=== PATIENT | male | born 1960 | race Caucasian/White ===

== ENCOUNTER → 2016-09-23 | Outpatient (CLI) | payer OTHER ==
[~2016-09-23] MED LIST: E-Z-PAQUE 96% w/w SUSP 176GM BTL As Ordered ONE
--- NOTE | 2016-09-23 17:37 | REP ---
SMALL BOWEL FOLLOW-THROUGH: The procedure was performed under the direct supervision of Dr. Bunn. The images were reviewed with Dr. Bunn. The director of food and nutrition services film shows no organomegaly or pathological masses. The intestinal gas pattern is nonspecific. There are surgical clips noted in the right upper quadrant. Liquid barium was administered and the barium column was followed through the small bowel to the level of the terminal ileum. Small bowel transit time is approximately 2 hours and 10 minutes. During fluoroscopy gentle palpation shows all loops are freely movable and pliable. There are no fixed or angulated loops. The small bowel mucosal pattern is normal in course and caliber. There is no transition to suggest a partial small bowel obstruction. Spot filming of terminal ileum shows it to be unremarkable. IMPRESSION: Small bowel follow-through examination within normal limits. 41 seconds of fluoroscopy time was utilized for this procedure. Reviewed by JAKOB Pugh 09/24/2016 04:36 PEdited and Signed by Julian Bunn MD 09/24/2016 04:51 P
== END | disposition home or self-care (01) ==
LOC: M RAD 08:44
PROVIDERS: ATTEND Internal Medicine Gastroenterology
DX: R93.3 Abnormal findings on diagnostic imaging of other parts of digestive tract (principal)

== ENCOUNTER → 2016-09-30 | Outpatient (REF) | payer OTHER ==
[~2016-09-30] MED LIST changes: +ALBU83IN INH; -E-Z-PAQUE 96% w/w SUSP 176GM BTL As Ordered ONE; +FLUT1SPR2; +LEXA1TAB PO; +METF500T PO; +OMEP40CA2 PO; +TYLE325T5 PO; +ZYRT10TA2 PO
[2016-09-30 11:47] LABS: ALBUMIN 3.6 GM/DL (3.2-5.2); ALBUMIN/GLOBULIN RATIO 1.06 (1.00-1.93); ALKALINE PHOSPHATASE 81 U/L (45-117); ALT/SGPT 20 U/L (12-78); ANION GAP 7 MEQ/L (8-16); AST/SGOT 11 U/L (15-37); BILIRUBIN,TOTAL 0.3 MG/DL (0.2-1.0); BLOOD UREA NITROGEN 13 MG/DL (7-18); CALCIUM LEVEL 8.6 MG/DL (8.5-10.1); CARBON DIOXIDE LEVEL 27 MEQ/L (21-32); CHLORIDE LEVEL 109 MEQ/L (98-107); CHOLESTEROL LEVEL 171 MG/DL (<200); GLOMERULAR FILTRATION RATE > 60.0 (>56); GLUCOSE, FASTING 94 MG/DL (70-105); POTASSIUM SERUM 4.4 MEQ/L (3.5-5.1); SODIUM LEVEL 143 MEQ/L (136-145); TRIGLYCERIDES LEVEL 120 MG/DL (<150)
== END | disposition home or self-care (01) ==
LOC: M SFHCLERA 08:50
PROVIDERS: ATTEND Physician Assistant
DX: E11.65 Type 2 diabetes mellitus with hyperglycemia (principal); E78.2 Mixed hyperlipidemia

== ENCOUNTER → 2016-10-06 | Outpatient (CLI) | payer OTHER ==
[~2016-10-06] VITALS: Ht 165.1 cm; Wt 109.3 kg
[~2016-10-06] MED LIST changes: +NS 1,000 ML IV SCH; +PROPOFOL 200 MG/20 ML VIAL As Ordered ONE
--- NOTE | 2016-10-06 09:22 | ROOR ---
Patient Name: Carlos Negron Procedure Date: 10/06/2016 9:05 AM Date of : 1960 Age: 55 Room: [facility] Gender: Male Note Status: Finalized Procedure: Colonoscopy Indications: Screening for colorectal malignant neoplasm Providers: Sreedhar CAO MD Referring MD: PRECIOUS Melendez Requesting Provider: Medicines: Monitored Anesthesia Care Complications: No immediate complications. Procedure: Pre-Anesthesia Assessment: - The heart rate, respiratory rate, oxygen saturations, blood pressure, adequacy of pulmonary ventilation, and response to care were monitored throughout the procedure. The Colonoscope was introduced through the anus and advanced to 3 cm into the ileum. The colonoscopy was performed without difficulty. The patient tolerated the procedure well. The quality of the bowel preparation was good. Findings: The perianal exam findings include non-thrombosed external hemorrhoids. (Exam: Complete, Prep: Good or Excellent.) A 3 mm polyp was found in the sigmoid colon. The polyp was sessile. The polyp was removed with a cold snare. Resection and retrieval were complete. Small Internal Hemorrhoids. The exam was otherwise normal throughout the examined colon. The terminal ileum appeared normal. Impression: - Non-thrombosed external hemorrhoids found on perianal exam. - (Exam: Complete, Prep: Good or Excellent.) - One 3 mm polyp in the sigmoid colon, removed with a cold snare. Resected and retrieved. - Small Internal Hemorrhoids. - The colon exam was otherwise normal. - The examined portion of the ileum was normal. Recommendation: - Await pathology results. - If the pathology report reveals adenomatous tissue, then repeat the colonoscopy for surveillance in 5 years. - Telephone endoscopist for pathology results in 2 weeks. Sreedhar Cao MD Sreedhar CAO MD 10/06/2016 9:22:34 AM This report has been signed electronically. Number of Addenda: 0 Note Initiated On: 10/06/2016 9:05 AM Estimated Blood Loss: Estimated blood loss: none.
[2016-10-06 09:46] VITALS: BP 145/76
== END ==
LOC: M OPP 08:07
PROVIDERS: ATTEND Internal Medicine Gastroenterology
DX: Z12.11 Encounter for screening for malignant neoplasm of colon (principal); D12.5 Benign neoplasm of sigmoid colon; K64.8 Other hemorrhoids; K64.4 Residual hemorrhoidal skin tags; K21.9 Gastro-esophageal reflux disease without esophagitis; F32.9 Major depressive disorder, single episode, unspecified; F41.9 Anxiety disorder, unspecified; Z72.0 Tobacco use; Z79.899 Other long term (current) drug therapy

== ENCOUNTER → 2017-07-27 | Outpatient (CLI) | payer OTHER ==
[~2017-07-27] MED LIST changes: -METF500T PO; +METF500T13 PO; -NS 1,000 ML IV SCH; -PROPOFOL 200 MG/20 ML VIAL As Ordered ONE
--- NOTE | 2017-07-27 10:40 | REP ---
Clinical: Chest pain . Comparison: 07/23/2010 . Technique: PA and lateral. Findings: The mediastinum and cardiac silhouette are normal. The lung ram are clear and without acute consolidation, effusion, or pneumothorax. The skeletal structures are intact and normal. Impression: 1. No acute cardiopulmonary process. Signed by Campos Huertas MD 07/27/2017 10:31 A
== END ==
LOC: M LRY 10:03
PROVIDERS: ATTEND Physician Assistant
DX: R07.9 Chest pain, unspecified (principal)

== ENCOUNTER → 2017-11-26 | Outpatient (REF) | payer OTHER ==
[2017-11-26 12:08] LABS: HEMOGLOBIN 16.5 g/dl (13.5-17.5)
[2017-11-26 12:29] LABS: ALBUMIN 3.7 GM/DL (3.2-5.2); ALBUMIN/GLOBULIN RATIO 1.12 (1.00-1.93); ALKALINE PHOSPHATASE 82 U/L (45-117); ALT/SGPT 23 U/L (12-78); ANION GAP 3 MEQ/L (8-16); AST/SGOT 19 U/L (7-37); BILIRUBIN,TOTAL 0.4 MG/DL (0.2-1.0); BLOOD UREA NITROGEN 9 MG/DL (7-18); CALCIUM LEVEL 9.2 MG/DL (8.5-10.1); CARBON DIOXIDE LEVEL 31 MEQ/L (21-32); CHLORIDE LEVEL 108 MEQ/L (98-107); CHOLESTEROL LEVEL 162 MG/DL (<200); CHOLESTEROL RISK RATIO 5.225 (<5); CREATININE FOR GFR 0.94 MG/DL (0.70-1.30); GLOMERULAR FILTRATION RATE > 60.0 (>56); GLUCOSE, FASTING 127 MG/DL (70-100); HDL CHOLESTEROL 31 MG/DL (>40); LDL CHOLESTEROL 108.2 MG/DL (<100); NON-HDL-C 131 MG/DL; POTASSIUM SERUM 4.9 MEQ/L (3.5-5.1); SODIUM LEVEL 142 MEQ/L (136-145); TRIGLYCERIDES LEVEL 114 MG/DL (<150)
== END ==
LOC: M SFHCLERA 09:12
DX: E11.65 Type 2 diabetes mellitus with hyperglycemia (principal); E78.2 Mixed hyperlipidemia

== ENCOUNTER → 2018-06-17 | Outpatient (REF) | payer OTHER ==
[2018-06-17 13:52] LABS: BASO # 0.1 10^3/uL (0.0-0.2); BASO % 0.7 % (0.0-1.0); EOS # 0.5 10^3/uL (0.0-0.50); EOS % 5.2 % (0.0-3.0); HEMATOCRIT 51.1 % (42.0-52.0); HEMOGLOBIN 17.3 g/dl (13.5-17.5); IMMATURE GRANULOCYTE % 0.9 % (0-3.0); LYMPH # 2.1 10^3/uL (1.5-4.5); LYMPH % 23.7 % (24.0-44.0); MEAN CORPUSCULAR HEMOGLOBIN 30.7 pg (27.0-33.0); MEAN CORPUSCULAR HGB CONC 33.9 g/dl (32.0-36.5); MEAN CORPUSCULAR VOLUME 90.6 fl (80.0-96.0); MONO # 0.7 10^3/uL (0.0-0.8); MONO % 8.2 % (0.0-5.0); NEUTROPHILS # 5.4 10^3/uL (1.8-7.7); NEUTROPHILS % 61.3 % (36.0-66.0); PLATELET COUNT, AUTOMATED 214 10^3/uL (150-450); RED BLOOD COUNT 5.64 10^6/uL (4.30-6.10); RED CELL DISTRIBUTION WIDTH 14.3 % (11.5-14.5); WHITE BLOOD COUNT 8.9 10^3/uL (4.0-10.0)
[2018-06-17 14:01] LABS: ALBUMIN/GLOBULIN RATIO 1.29 (1.00-1.93); ALKALINE PHOSPHATASE 82 U/L (45-117); ALT/SGPT 31 U/L (12-78); ANION GAP 7 MEQ/L (8-16); AST/SGOT 24 U/L (7-37); BILIRUBIN,TOTAL 0.4 MG/DL (0.2-1.0); BLOOD UREA NITROGEN 9 MG/DL (7-18); CALCIUM LEVEL 9.5 MG/DL (8.5-10.1); CARBON DIOXIDE LEVEL 28 MEQ/L (21-32); CHLORIDE LEVEL 106 MEQ/L (98-107); CHOLESTEROL LEVEL 145 MG/DL (<200); CHOLESTEROL RISK RATIO 3.625 (<5); CREATININE FOR GFR 0.92 MG/DL (0.70-1.30); GLOMERULAR FILTRATION RATE > 60.0 (>56); GLUCOSE, FASTING 112 MG/DL (70-100); HDL CHOLESTEROL 40 MG/DL (>40); LDL CHOLESTEROL 77 MG/DL (<100); NON-HDL-C 105 MG/DL; POTASSIUM SERUM 4.5 MEQ/L (3.5-5.1); SODIUM LEVEL 141 MEQ/L (136-145); TOTAL PROTEIN 7.1 GM/DL (6.4-8.2); TRIGLYCERIDES LEVEL 140 MG/DL (<150)
[2018-06-17 14:32] LABS: ESTIMATED AVERAGE GLUCOSE 143 MG/DL (60-110); HEMOGLOBIN A1c 6.6 %
[2018-06-17 14:36] LABS: CREATININE, URINE 19.9 MG/DL; MALB URINE SIEMENS < 5.0 MG/L
[2018-06-17 14:37] LABS: MAU/CREAT RATIO 25.1 MCG/MG (0.0-30.0)
== END ==
LOC: M SFHCPLAZ 11:25
DX: E78.2 Mixed hyperlipidemia (principal); E11.65 Type 2 diabetes mellitus with hyperglycemia; I10 Essential (primary) hypertension
CPT/HCPCS: 80053

== ENCOUNTER → 2018-06-24 | Outpatient (CLI) | payer OTHER | LOC: M WUC 17:13 | DX: J01.10 Acute frontal sinusitis, unspecified (principal); J20.9 Acute bronchitis, unspecified; Z72.0 Tobacco use | CPT/HCPCS: 71046 ==

== ENCOUNTER → 2019-11-06 | Outpatient (CLI) | payer BC, OTHER ==
[~2019-11-06] MED LIST changes: -OMEP40CA2 PO; +OMEP40CA97 PO; +ZYRT10CA5 PO; -ZYRT10TA2 PO
--- NOTE | 2019-11-06 19:51 | REP ---
PA and lateral chest: Comparison is 06/24/2018. There is chronic hyperinflation, unchanged. There are no infiltrates or pleural effusions. There are no masses or nodules. The cardiac size is normal. The eliezer, mediastinum, skeletal structures are unremarkable for patient age, and unchanged. There is multilevel moderate degenerative disc disease throughout the thoracic spine, unchanged. Impression: Chronic hyperinflation. Chronic low thoracic spine degenerative disc disease. No interval change. Electronically Signed by Oseas Gonzalez MD 11/06/2019 07:43 P
== END ==
LOC: M LRY 15:56
PROVIDERS: ATTEND Nurse Practitioner Family
DX: R09.89 Other specified symptoms and signs involving the circulatory and respiratory systems (principal)

== ENCOUNTER → 2020-06-25 | Outpatient (CLI) | payer OTHER ==
[~2020-06-25] MED LIST changes: +FLON1SPR NARES
[2020-06-25 10:52] LABS: HEMATOCRIT 53.1 % (42.0-52.0); MEAN CORPUSCULAR HEMOGLOBIN 29.4 pg (27.0-33.0); MEAN CORPUSCULAR VOLUME 91.9 fl (80.0-96.0); PLATELET COUNT, AUTOMATED 175 10^3/uL (150-450); RED BLOOD COUNT 5.78 10^6/uL (4.30-6.10); WHITE BLOOD COUNT 7.8 10^3/uL (4.0-10.0)
[2020-06-25 11:02] LABS: INR 0.93; PROTHROMBIN TIME 12.7 SECONDS (12.5-14.3)
[2020-06-25 11:12] LABS: ALBUMIN 3.9 GM/DL (3.2-5.2); ALT/SGPT 23 U/L (12-78); BILIRUBIN,TOTAL 0.3 MG/DL (0.2-1.0); BLOOD UREA NITROGEN 9 MG/DL (7-18); CALCIUM LEVEL 9.3 MG/DL (8.5-10.1); CARBON DIOXIDE LEVEL 28 MEQ/L (21-32); CHLORIDE LEVEL 104 MEQ/L (98-107); CREATININE FOR GFR 0.93 MG/DL (0.70-1.30); ERYTHROCYTE SEDIMENTATION RATE 1 mm/hr (0-20); GLOMERULAR FILTRATION RATE > 60.0 (>56); GLUCOSE, FASTING 138 MG/DL (70-100); POTASSIUM SERUM 4.5 MEQ/L (3.5-5.1); SODIUM LEVEL 135 MEQ/L (136-145); TOTAL PROTEIN 7.1 GM/DL (6.4-8.2)
--- NOTE | 2020-06-26 03:28 | REP ---
INDICATION: RIGHT KNEE ARTHRITIS; PREOP COMPARISON: 11/06/2019 TECHNIQUE: PA and lateral. FINDINGS: The mediastinum and cardiac silhouette are normal. The lung ram are clear and without acute consolidation, effusion, or pneumothorax. The skeletal structures are intact and normal. IMPRESSION: No acute cardiopulmonary process. <Electronically signed by Campos Huertas > 06/26/20 032
--- NOTE | 2020-06-27 22:45 | ECGEPIP ---
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 Electronically Signed on 06-27-2020 22:45:39 EDT by Sreedhar Valadez
== END ==
LOC: M LAB 09:47
PROVIDERS: ATTEND Orthopaedic Surgery
DX: Z01.818 Encounter for other preprocedural examination (principal); M17.11 Unilateral primary osteoarthritis, right knee

== ENCOUNTER → 2020-07-02 | Outpatient (REF) | payer OTHER ==
[2020-07-02 16:20] LABS: ALT/SGPT 23 U/L (12-78); BILIRUBIN,TOTAL 0.4 MG/DL (0.2-1.0); BLOOD UREA NITROGEN 11 MG/DL (7-18); C REACTIVE PROTEIN QUANTITATIV 0.93 MG/DL (0.00-0.30); CALCIUM LEVEL 9.9 MG/DL (8.5-10.1); CARBON DIOXIDE LEVEL 30 MEQ/L (21-32); CHLORIDE LEVEL 105 MEQ/L (98-107); CHOLESTEROL LEVEL 180 MG/DL (<200); CREATININE FOR GFR 0.98 MG/DL (0.70-1.30); FREE T4 1.02 NG/DL (0.76-1.46); GLOMERULAR FILTRATION RATE > 60.0 (>56); GLUCOSE, FASTING 103 MG/DL (70-100); HDL CHOLESTEROL 36 MG/DL (>40); LDL CHOLESTEROL 116 MG/DL (<100); NON-HDL-C 144 MG/DL; NT-PRO BNP 52 PG/ML (<125); POTASSIUM SERUM 4.9 MEQ/L (3.5-5.1); SODIUM LEVEL 138 MEQ/L (136-145); TOTAL PROTEIN 7.3 GM/DL (6.4-8.2); TRIGLYCERIDES LEVEL 139 MG/DL (<150); TROPONIN I < 0.02 NG/ML (< 0.10)
[2020-07-02 18:01] LABS: HEMOGLOBIN A1c 6.8 %
== END ==
LOC: M SFHCPLAZ 13:02
PROVIDERS: ATTEND Family Medicine
DX: Z01.818 Encounter for other preprocedural examination (principal); E11.65 Type 2 diabetes mellitus with hyperglycemia

== ENCOUNTER → 2020-07-03 | Outpatient (CLI) | payer OTHER ==
[~2020-07-03] MED LIST changes: +ACET-683 PO
== END ==
LOC: M LABSMTC 13:27
PROVIDERS: ATTEND Anesthesiology
DX: Z01.818 Encounter for other preprocedural examination (principal)
CPT/HCPCS: C9803; U0003

== ENCOUNTER 2020-07-08 10:38 | Inpatient (IN) | payer OTHER ==
--- NOTE | 2020-07-05 09:48 | HPE ---
DATE OF ADMISSION: 07/08/2020 ATTENDING PHYSICIAN: Dr. Rafael Cao ADMITTING DIAGNOSIS: Work related injury to his right knee. HISTORY: This is a 59-year-old male patient with progressively worsening right knee pain and stiffness related to a work related injury. He ultimately developed osteoarthritis in that knee and failed to improve with conservative management and elected for a knee replacement on the right side. He has been consented by Dr. Gee for a right total knee arthroplasty. He has pain with weightbearing activities and activities of daily living. X-rays of his knee are notable for end-stage degenerative changes of the right knee, medical optimization pending and now present for review today. ALLERGIES: No known drug allergies. CURRENT MEDICATIONS: 1. Prilosec 20 mg one tablet once per day. 2. He does use [id number] Motrin. We did discuss he needs to stop that five days prior to surgery. PAST MEDICAL HISTORY: Include gastric reflux disease, symptomatic osteoarthritis of the right knee, elevated cholesterol. PAST SURGICAL HISTORY: Carpal tunnel release, gallbladder removed, tonsils removed, prior right knee scope, bilateral PE tubes. FAMILY HISTORY: Arthritis, heart disease, hypertension. SOCIAL HISTORY: Does continue to smoke. He does use alcohol. REVIEW OF SYSTEMS: Denies fever or chills. Denies chest pain, shortness of breath or cough. Denies difficulty breathing. Denies abdominal pain. There is persistent pain in his right knee and pain with weightbearing activities. Denies exposure to COVID-19. Denies nausea or vomiting. PHYSICAL EXAMINATION TODAY: Reveals a well-nourished, well developed male patient. He ambulates with a limping gait, favors his right side. Exam of the right knee reveals tenderness mainly over the medial joint line. Patellar grind is irritable. The calf is soft, nontender to palpation. He has irritability to extremes of range of motion. Well perfused right lower extremity. His neck is supple without adenopathy or JVD. Lungs are clear to auscultation, without rales or wheeze. Heart is regular rate and rhythm. Abdomen; bowel sounds are present. Height 65 inches, weight 242 pounds. Temperature 96.6, blood pressure 142/90, pulse 66, respirations 18. LABORATORY DATA: Glucose 138, BUN 9, creatinine 0.93. Sodium 135, potassium 4.5. WBC 7.8, RBC 5.7, hemoglobin 17.0, hematocrit 53.1, sed rate 1. PT 12.7, INR 0.93. IMAGING STUDIES: Chest x-ray no acute cardiopulmonary disease process noted. EKG sinus rhythm. IMPRESSION: Symptomatic osteoarthritis of the right knee, and consented for a right total knee arthroplasty by Dr. Gee secondary to a work related injury. PLAN: He was consulted on his risks, benefits, alternatives and indications of the surgery, went over his pre and postoperative instructions. We discussed COVID-19 testing, and he should self quarantine. We discussed NSAIDs and he needs to discontinue those five days prior to surgery. We went over n.p.o. and what n.p.o. means, and we discussed once again that he should take only the medications as directed by his primary and only with a smidgen of water. We talked about being on time and the fact that currently there are no visitors allowed. All his questions were answered. JOYCE
[~2020-07-08] VITALS: Ht 166.4 cm; Wt 108.3 kg
[~2020-07-08 10:38] MED LIST changes: -ACET-683 PO; +ACETAMINOPHEN 500 MG TAB PO ONE; +LR 1,000 ML IV ONE; +MIDAZOLAM INJ 2MG/2ML VIAL (J2250 PER 1MG) IV SCH; +fentaNYL 100 MCG/2 ML INJECTION (J3010) IV SCH
[2020-07-08] MEDS ORDERED: ACET-683 PO (11:26)
[2020-07-08] MEDS ORDERED: fentaNYL 100 MCG/2 ML INJECTION (J3010) As Ordered ONE ×2 (12:28→13:04)
[2020-07-08] MEDS ORDERED: propofoL 500 MG/50 ML VIAL As Ordered ONE ×2 (12:28→12:29)
[2020-07-08] MEDS ORDERED: propofoL 200 MG/20 ML VIAL As Ordered ONE ×2 (12:29→15:02)
[2020-07-08] MEDS ORDERED: LIDOCAINE 2% 100MG/5ML SDV (FOR ANES.) As Ordered ONE (12:29)
[2020-07-08] MEDS ORDERED: MIDAZOLAM INJ 2MG/2ML VIAL (J2250 PER 1MG) As Ordered ONE (13:04)
[2020-07-08] MEDS ORDERED: ceFAZolin 1GM VIAL (J0690 PER 500MG) As Ordered ONE (14:07)
[2020-07-08] MEDS ORDERED: BUPIVACAINE HCL 0.25% 10ML VIAL As Ordered ONE (14:08)
[2020-07-08] MEDS ORDERED: BUPIVACAINE LIPOSOME/PF 1.3% 20ML VIAL (13.3MG/ML)(EXPAREL)(C9290 PER1MG) As Ordered ONE (14:08)
[2020-07-08] MEDS ORDERED: TRANEXAMIC ACID 100 MG/ML 10ML VIAL As Ordered ONE (14:09)
[2020-07-08] MEDS ORDERED: EPINEPHrine INJ 1 MG/ML 1ML AMP As Ordered ONE (14:09)
[2020-07-08] MEDS: ceFAZolin SOD 2 GM in IV 1 EA IV ONE (14:48)
[2020-07-08] MEDS ORDERED: ePHEDrine SULFATE 25 MG/5 ML(5MG/ML) SYRINGE As Ordered ONE (15:03)
[2020-07-08] MEDS ORDERED: PHENYLephrine HCL 500 MCG/5 ML (100MCG/ML) SYRINGE (J2370) As Ordered ONE (15:03)
[2020-07-08] MEDS ORDERED: EPINEPHrine INJ 1 MG/ML 1ML AMP ONE (15:14)
[2020-07-08] MEDS ORDERED: ROPIvacaine 0.5% 30ML INJECTION (J2795 PER 1MG) ONE (15:14)
[2020-07-08] MEDS ORDERED: dexameTHASONE 10MG/1ML VIAL PRES.FREE (J1100 PER 1MG) ONE (15:14)
[2020-07-08] MEDS ORDERED: LIDOCAINE 1% MDV 20ML VIAL ONE (15:14)
--- NOTE | 2020-07-08 17:03 | REP ---
INDICATION: POST OP IN PACU - WILL CALL. COMPARISON: None. TECHNIQUE: AP and lateral views obtained portably. FINDINGS: Two views of the right knee demonstrate right knee arthroplasty components in good position relative to the beaver bones and relative to each other.. There is intra-articular and periarticular soft tissue emphysema. Anterior skin waqar are noted.. No opaque foreign body noted. IMPRESSION: Status post right knee arthroplasty.. <Electronically signed by Yaakov Bunn > 07/08/20 1519
[2020-07-08 17:30] VITALS: BP 108/68
[2020-07-08] MEDS ORDERED: LR 1,000 ML IV SCH ×2 (17:45)
[2020-07-08] MEDS ORDERED: MORPHINE 2 MG/ML 1ML VIAL (J2270) IV PRN (17:45)
[2020-07-08] MEDS ORDERED: fentaNYL 100 MCG/2 ML INJECTION (J3010) IV PRN (17:45)
[2020-07-08] MEDS ORDERED: ONDANSETRON 4MG/2ML VIAL IV PRN ×2 (17:45)
[2020-07-08] MEDS ORDERED: MORPHINE 4 MG/ML 1ML VIAL/SYRINGE (J2270) IV PRN (17:45)
[2020-07-08] MEDS ORDERED: METOCLOPRAMIDE INJ 10MG/2ML VIAL (J2765 PER 1) IV PRN (17:45)
[2020-07-08] MEDS ORDERED: oxyCODONE 5MG TAB PO PRN (17:45)
[2020-07-08] MEDS ORDERED: ACETAMINOPHEN TAB 650MG DOSE (2X325MG) PO PRN (17:45)
[2020-07-08] MEDS ORDERED: PERCOCET 5MG/325MG TAB PO PRN (17:45)
[2020-07-08 18:00] VITALS: BP 111/66
[2020-07-08 19:00] VITALS: BP 121/74
[2020-07-08 20:00] VITALS: BP 131/72
[2020-07-08] MEDS: ASPIRIN 81 MG ENTERIC TAB PO SCH (20:04)
[2020-07-08] MEDS: PERCOCET 5MG/325MG TAB PO PRN (20:04)
[2020-07-08 21:00] VITALS: BP 159/85
[2020-07-08 22:00] VITALS: BP 128/80
[2020-07-08] MEDS: ceFAZolin SOD 2 GM in IV 1 EA IV SCH (22:06)
--- NOTE | 2020-07-08 23:19 | CR.PDOC ---
General Date of Consultation: Jul 08, 2020 Referring Provider: Flash Paz Consultation REASON FOR CONSULTATION/CHIEF COMPLAINT: Medical consultation s/p right knee rep lacement HISTORY OF PRESENT ILLNESS: Mr. Negron is a 59 year old male with GERD here for elective right knee replacement. He has sustained a work related injury and had osteoarthritis of the knee. He went to the OR today on 07/08/2020. He was seen on [facility] after surgery. He was feeling well, but the pain in the knee has stated to return. Denies any fever/chills, chest pain, abdominal pain, or dysuria. ALLERGIES: Please see below. HOME MEDICATIONS: Please see below. PAST MEDICAL HISTORY: 1. GERD 2. Migraine 3. COPD 4. Sleep apnea 5. Diet controlled DM PAST SURGICAL HISTORY: 1. Right total knee 07/08/2020 2. Cholecystectomy 3. Carpal tunnel release 4. Tonsillectomy FAMILY HISTORY: Arthritis, heart disease, hypertension SOCIAL HISTORY: Tobacco use:Current smoker ETOH: Reports use REVIEW OF SYSTEMS: CONSTITUTIONAL: Denies any fever or chills. Denies lightheadedness or dizziness. ENT: Denies rhinorrhea. Denies sore throat. Denies dysphagia. RESPIRATORY: Denies shortness of breath. Denies cough. CARDIOVASCULAR: Denies chest pain. Denies palpitations. GASTROINTESTINAL: Denies abdominal pain. Denies diarrhea. Denies constipation GENITOURINARY: Denies dysuria. CUTANEOUS: Denies rashes. MUSCULOSKELETAL: Right knee pain NEUROLOGICAL: Paresthesias, but improving HEMATOLOGICAL: Denies easy bruisability PHYSICAL EXAMINATION: VITAL SIGNS: Please see below. GENERAL: Comfortable, in no apparent distress. HEENT: Head normocephalic/atraumatic, EOMI, sclera clear. NECK: Supple, no JVD. RESPIRATORY: Lungs clear to auscultation bilaterally, no rales, wheeze or rhonchi. CARDIOVASCULAR: Regular rate and rhythm. ABDOMEN: Soft, nontender, no guarding or rebound tenderness. Normal bowel sounds. MUSCLE SKELETAL: No pitting edema. NEUROLOGICAL: CN 312 grossly intact, no focal deficits noted. PSYCHOLOGICAL: Normal mood and affect LABORATORY DATA: Please see below. ASSESSMENT/PLAN: 1. Right knee osteoarthritis status post right total knee replacement Being managed by orthopedic team 2. GERD Continue with PPI 3. DVT ppx -Per orthopedic team recommendations Vital Signs/I&O Vital Signs Date Time Temp Pulse Resp B/P (MAP) Pulse Ox O2 Delivery O2 Flow Rate FiO2 07/08/20 22:17 18 07/08/20 20:00 97.9 74 131/72 (91) 97 Room Air 07/08/20 19:00 2.0 Laboratory Data Labs 24H Laboratory Tests 2 07/08/20 16:48: Bedside Glucose ([facility] Panel) 128H Allergies Coded Allergies: shellfish derived (Verified Allergy, Severe, ANAPHYLAXIS, 07/08/20) Home Medications Scheduled Omeprazole (Omeprazole) 40 Mg Cap, 40 MG PO DAILY, (Reported) Scheduled PRN Albuterol Sulf (Albuterol Sulfate) 2.5 Mg/3 Ml Nebu, 2.5 MG INH PRN PRN for CONGESTION, (Reported) Fluticasone Propionate (Flonase Allergy Relief) 9.9 Ml [place].susp, 2 SPRAY NARES PRN PRN for NASAL DRYNESS for 30 Days, #9.9 (Reported) Miscellaneous Medications Acetaminophen (Acetaminophen) 500 Mg Tablet, 1,000 MG PO, (Reported) DEVON ROMERO DO Jul 08, 2020 23:19
[2020-07-09 02:30] VITALS: BP 156/84
[2020-07-09] MEDS: PERCOCET 5MG/325MG TAB PO PRN ×3 (04:31→13:45)
[2020-07-09] MEDS: ceFAZolin SOD 2 GM in IV 1 EA IV SCH ×2 (06:31→13:42)
[2020-07-09 06:34] VITALS: BP 153/79
[2020-07-09] MEDS ORDERED: ECOT81TA5 PO ×2 (06:38→07:02)
[2020-07-09] MEDS ORDERED: PERC5TAB12 PO (06:38)
[2020-07-09 07:16] LABS: HEMATOCRIT 46.1 % (42.0-52.0); HEMOGLOBIN 15.2 g/dl (13.5-17.5); MEAN CORPUSCULAR HEMOGLOBIN 29.9 pg (27.0-33.0); MEAN CORPUSCULAR VOLUME 90.7 fl (80.0-96.0); PLATELET COUNT, AUTOMATED 169 10^3/uL (150-450); RED BLOOD COUNT 5.08 10^6/uL (4.30-6.10); WHITE BLOOD COUNT 15.1 10^3/uL (4.0-10.0)
--- NOTE | 2020-07-09 07:24 | RO ---
DATE OF OPERATION: 07/08/2020 PREOPERATIVE DIAGNOSIS: Right knee tricompartmental degenerative arthritis. POSTOPERATIVE DIAGNOSIS: Right knee tricompartmental degenerative arthritis. PROCEDURE: Right total knee arthroplasty using a size 6 ATTUNE cruciate retaining femoral component with a size 6 tibial tray, 6 mm polyethylene rotating platform insert with a 38 mm polyethylene button. All the components were cemented. Prosthesis made by [employer]. It was an ATTUNE knee. SURGEON: Rafael Paz MD [employer] DEVELOPER: Mansi Gilliland ANESTHESIA: Right femoral nerve block with spinal anesthetic. COMPLICATIONS: None. ESTIMATED BLOOD LOSS: 20 mL SPECIMEN: Joint surface. OPERATIVE PROCEDURE: Antibiotics were given intravenously preoperatively. Successful right femoral nerve guillermina and then a spinal anesthetic was induced. Tourniquet placed to the right upper thigh, not inflated. The right lower extremity was carefully prepped and draped in the usual sterile fashion and the leg was elevated. After appropriate time-out, the tourniquet was inflated. A longitudinal incision was made for a median parapatellar approach to the knee. Bovie cautery was used to coagulate crossing vessels. Subperiosteal dissection around the proximal, medial and lateral tibial plateaus was performed and the patella was everted and ACL dbrided, the knee flexed and the drill placed on the center of the femoral canal with an intramedullary steven and the distal femoral cutting jig was introduced and set at 5 degree valgus cut. A 9 mm resection level for a right knee. The jig was pinned into position and then a distal femoral cut performed. AP size and jig measured for a size 6, 3 degrees of external rotation were dialed in. The pins placed and then the four-in-one block applied. Anterior/posterior chamfer cuts were then performed taking great care to protect the surrounding soft tissues. The jig for notchplasty was then applied and the notchplasty performed. We then exposed the proximal tibia and used the extra medullary alignment and jig for the tibia referencing off the medial tibial condyle. We set it at 4 mm reference. A secondary check with the extramedullary steven confirmed we appeared to be parallel to the mechanical axis. Thus a proximal tibial osteotomy was performed. We then placed the lamina barking machine feeder medially, performed a completion of lateral meniscectomy, debridement of posteromedial osteophytes and placed then placed the lamina barking machine feeder laterally and performed a completion medial meniscectomy and debridement of the posteromedial osteophytes. The spacer block was very snug at 6 mm both in flexion and in extension and very symmetrical to varus/valgus stress testing both in flexion and extension. Thus I elected to because of his excessively tight take 2 additional mm from the proximal tibia. The block was reapplied and 2 more mm of bone were removed from the proximal tibia. This allowed the 6 mm space of block to fit normal with good stability if varus/valgus stress testing both in flexion and in extension. We then exposed the proximal tibia, sized for a number 6 tibial tray which was pinned into position followed by the reamer and the broach. The trial polyethylene was placed and the trial femoral component placed. Then the knee was brought into extension and the patella everted. The patella osteotomy was performed and a 38 mm trial was called for. The lug holes were drilled, trial placed and the patellofemoral tracking was anatomic. At this point we removed all the trial components after drilling the lug holes for the femur and placed Exparel into the subperiosteal tissues around the distal femur and the proximal tibia. We then prepared the bony surfaces for cementing with a copious amount of pulsatile lavage irrigant solution as my assistant store manager sales Ms. Mansi Gilliland mixed the cement on the back table. She was also critical to the success of this difficult procedure by helping with manipulating the knee as needed for soft tissue retraction, help to prepare the patient, help to close the wound, help to mix the cement amongst many other tasks to allow me to perform the operation smoothly, efficiently, and safely. Once all the bony surfaces were thoroughly dried, I cemented the tibial tray, removing excess cement, then placed the polyethylene and then cemented the femoral component, removed excess cement, brought the knee into extension and then cemented the patellar button and removed excess cement and held the button with a clamp with the knee fully extended until the cement hardened. As we were awaiting this we continued to irrigate out the knee joint. I then placed tranexamic acid. We did check the notch at the femur while the cement was hardening while the knee was in extension and there was a small amount of cement that extruded from the notch which was removed with a curette. We then began closing the apex of the arthrotomy with two #1 PDS sutures. The medial parapatellar area was closed with #1 PDS suture, then a double armed running STRATAFIX was used to close the capsule and then we released the tourniquet. We irrigated between layers, closed the deep subdermal tissues with interrupted 2-0 PDS sutures and the skin was closed with waqar, covered by an Optifoam and dry sterile bulky dressing. Then the patient was transferred to the recovery room in stable condition. There were no intraoperative complications. JOYCE
[2020-07-09 07:44] LABS: ALBUMIN 3.2 GM/DL (3.2-5.2); ALT/SGPT 21 U/L (12-78); BILIRUBIN,TOTAL 0.3 MG/DL (0.2-1.0); BLOOD UREA NITROGEN 12 MG/DL (7-18); CALCIUM LEVEL 8.5 MG/DL (8.5-10.1); CARBON DIOXIDE LEVEL 23 MEQ/L (21-32); CHLORIDE LEVEL 106 MEQ/L (98-107); CREATININE FOR GFR 0.93 MG/DL (0.70-1.30); GLOMERULAR FILTRATION RATE > 60.0 (>56); GLUCOSE, FASTING 180 MG/DL (70-100); POTASSIUM SERUM 4.2 MEQ/L (3.5-5.1); SODIUM LEVEL 137 MEQ/L (136-145); TOTAL PROTEIN 6.5 GM/DL (6.4-8.2)
[2020-07-09] MEDS: ASPIRIN 81 MG ENTERIC TAB PO SCH (08:28)
[2020-07-09] MEDS ORDERED: OMEPRAZOLE 20 MG CAP PO SCH (09:00)
[2020-07-09] MEDS ORDERED: MOM 30ML SUSPENSION UDC PO SCH (09:00)
[2020-07-09] MEDS ORDERED: MIRALAX *UNIT DOSE* 17GM PACKET PO SCH (09:00)
[2020-07-09 10:00] VITALS: BP 144/78
--- NOTE | 2020-07-12 13:58 | DS ---
DATE OF ADMISSION: 07/08/2020 DATE OF DISCHARGE: 07/09/2020 ATTENDING: Flash Paz M.D. ADMITTING DIAGNOSIS: Osteoarthritis right knee status post a work related injury. OTHER DIAGNOSES: Include: * Gastric reflux disease. * Elevated cholesterol. DISCHARGE DIAGNOSIS: Osteoarthritis right knee secondary to a work related injury status post right total knee arthroplasty. HISTORY: This is a 59-year-old male patient with progressively worsening right knee pain and stiffness secondary to a work related injury. He elected for surgery for his continued symptoms. He was consented and admitted for elective knee replacement on the right side. OPERATION PERFORMED: Right total knee arthroplasty. HOSPITAL COURSE: The patient was admitted on the day of surgery and underwent the right total knee arthroplasty which was uneventful. He did well in the post- operative period and his hospital course was without complications. He was up with physical therapy per their protocol and his pain was controlled. On the day of discharge he was weightbearing as tolerated on the right lower extremity. He will use aspirin 81 mg twice a day and Ishan stockings for DVT prophylaxis per the protocol. He will resume his pre-operative medications and diet. He will use oral pain medications for pain control. He will follow up in our office for a surgical follow up in 10-14 days. Please refer to the medical record for further details. JOYCE
== END 2020-07-09 15:05 | disposition home or self-care (01) | DRG 302 ==
LOC: M OR 10:38 → M MS5PR 17:10
PROVIDERS: ADMIT Orthopaedic Surgery; ATTEND Orthopaedic Surgery
PROC: 0SRC0J9 Replacement of Right Knee Joint with Synthetic Substitute, Cemented, Open Approach (ICD-10-PCS; principal; 2020-07-08 13:45)
DX: M17.11 Unilateral primary osteoarthritis, right knee (principal); J44.9 Chronic obstructive pulmonary disease, unspecified; K21.9 Gastro-esophageal reflux disease without esophagitis; E78.00 Pure hypercholesterolemia, unspecified; G43.909 Migraine, unspecified, not intractable, without status migrainosus; E11.9 Type 2 diabetes mellitus without complications; Z90.49 Acquired absence of other specified parts of digestive tract; F17.200 Nicotine dependence, unspecified, uncomplicated; Z79.899 Other long term (current) drug therapy; Z91.013 Allergy to seafood

== ENCOUNTER → 2021-01-18 | Outpatient (CLI) | payer BC ==
[~2021-01-18] MED LIST changes: +ACET-683 PO; -ACETAMINOPHEN 500 MG TAB PO ONE; +ECOT81TA5 PO; -LR 1,000 ML IV ONE; -MIDAZOLAM INJ 2MG/2ML VIAL (J2250 PER 1MG) IV SCH; +PERC5TAB12 PO; -fentaNYL 100 MCG/2 ML INJECTION (J3010) IV SCH
== END ==
LOC: M LABSMTC 09:04
PROVIDERS: ATTEND Pediatrics
DX: Z11.52 Encounter for screening for COVID-19 (principal)

== ENCOUNTER → 2021-01-20 | Outpatient (REF) | payer BC, OTHER | LOC: M SFHCLERA 15:01 | PROVIDERS: ATTEND Nurse Practitioner Family | DX: R36.1 Hematospermia (principal) ==

== ENCOUNTER → 2021-01-21 | Outpatient (CLI) | payer BC ==
--- NOTE | 2021-01-21 10:17 | REP ---
INDICATION: LEFT SIDE POINT TENDERNESS OF RIBS. PATIENT COUGHING A LOT. COMPARISON: None. TECHNIQUE: Frontal view of the chest with multiple views of the left hemithorax. FINDINGS: Frontal view of the chest demonstrates no acute cardiopulmonary process, contusion, effusion, or pneumothorax. Multiple views of the left hemithorax demonstrates no acute rib fracture/injury or pathology. IMPRESSION: Normal rib series. <Electronically signed by Campos Huertas > 01/21/21 1013
[2021-01-21 11:48] LABS: BASO # 0.1 10^3/uL (0.0-0.2); BASO % 0.5 % (0.0-1.0); EOS # 0.2 10^3/uL (0.0-0.5); EOS % 1.9 % (0.0-3.0); HEMATOCRIT 48.5 % (42.0-52.0); HEMOGLOBIN 16.2 g/dl (13.5-17.5); LYMPH # 1.7 10^3/uL (1.5-5.0); LYMPH % 14.7 % (24.0-44.0); MEAN CORPUSCULAR HEMOGLOBIN 29.7 pg (27.0-33.0); MEAN CORPUSCULAR HGB CONC 33.4 g/dl (32.0-36.5); MEAN CORPUSCULAR VOLUME 88.8 fl (80.0-96.0); MONO # 1.1 10^3/uL (0.0-0.8); MONO % 9.4 % (2.0-8.0); NEUTROPHILS # 8.5 10^3/uL (1.5-8.5); NEUTROPHILS % 72.8 % (36.0-66.0); PLATELET COUNT, AUTOMATED 235 10^3/uL (150-450); RED BLOOD COUNT 5.46 10^6/uL (4.30-6.10); WHITE BLOOD COUNT 11.7 10^3/uL (4.0-10.0)
[2021-01-21 12:36] LABS: ALBUMIN 3.2 GM/DL (3.2-5.2); ALT/SGPT 24 U/L (12-78); BILIRUBIN,TOTAL 0.6 MG/DL (0.2-1.0); BLOOD UREA NITROGEN 13 MG/DL (7-18); CALCIUM LEVEL 9.4 MG/DL (8.5-10.1); CARBON DIOXIDE LEVEL 27 MEQ/L (21-32); CHLORIDE LEVEL 98 MEQ/L (98-107); CREATININE FOR GFR 0.88 MG/DL (0.70-1.30); GLOMERULAR FILTRATION RATE > 60.0 (>56); GLUCOSE, FASTING 304 MG/DL (70-100); POTASSIUM SERUM 4.3 MEQ/L (3.5-5.1); SODIUM LEVEL 134 MEQ/L (136-145); TOTAL PROTEIN 6.8 GM/DL (6.4-8.2)
== END ==
LOC: M LAB 09:36
PROVIDERS: ATTEND Nurse Practitioner Family
DX: R36.1 Hematospermia (principal)

== ENCOUNTER → 2021-02-06 | Outpatient (REF) | payer BC, OTHER ==
[2021-02-06 14:39] LABS: APPEARANCE, URINE CLEAR (CLEAR); BACTERIA, URINE AUTO NEGATIVE (NEGATIVE); BILIRUBIN, URINE AUTO NEGATIVE (NEGATIVE); BLOOD, URINE BLOOD NEGATIVE (NEGATIVE); COLOR, URINE YELLOW (YELLOW); GLUCOSE, URINE (UA) AUTO NEGATIVE (NEGATIVE); KETONE, URINE AUTO NEGATIVE (NEGATIVE); LEUKOCYTE ESTERASE, URINE AUTO NEGATIVE (NEGATIVE); NITRITE, URINE AUTO NEGATIVE (NEGATIVE); PROTEIN, URINE AUTO NEGATIVE (NEGATIVE); RBC, URINE AUTO 0 /HPF (0-3); SQUAMOUS EPITHELIAL CELL UR AU 0 /HPF (0-6); UROBILINOGEN, URINE AUTO 0.2 mg/dL (0.0-2.0); WBC, URINE AUTO 1 /HPF (0-3)
== END ==
LOC: M SMT 13:07
PROVIDERS: ATTEND Nurse Practitioner Women's Health
DX: R36.1 Hematospermia (principal); N39.0 Urinary tract infection, site not specified

== ENCOUNTER → 2021-05-06 | Outpatient (REF) | payer OTHER, BC ==
[~2021-05-06] MED LIST changes: +OMEP40CA4 PO; -OMEP40CA97 PO
== END ==
LOC: M SFHCLERA 15:56
PROVIDERS: ATTEND Nurse Practitioner Family
DX: J44.1 Chronic obstructive pulmonary disease with (acute) exacerbation (principal)

== ENCOUNTER → 2021-07-03 | Outpatient (CLI) | payer OTHER, BC ==
[2021-07-03 13:44] LABS: BASO # 0.1 10^3/uL (0.0-0.2); BASO % 0.8 % (0.0-1.0); EOS # 0.4 10^3/uL (0.0-0.5); EOS % 4.9 % (0.0-3.0); HEMATOCRIT 49.5 % (42.0-52.0); HEMOGLOBIN 16.1 g/dl (13.5-17.5); LYMPH % 25.5 % (24.0-44.0); MEAN CORPUSCULAR HEMOGLOBIN 30.1 pg (27.0-33.0); MEAN CORPUSCULAR HGB CONC 32.5 g/dl (32.0-36.5); MEAN CORPUSCULAR VOLUME 92.5 fl (80.0-96.0); MONO # 0.5 10^3/uL (0.0-0.8); MONO % 6.8 % (2.0-8.0); NEUTROPHILS # 4.9 10^3/uL (1.5-8.5); NEUTROPHILS % 61.6 % (36.0-66.0); PLATELET COUNT, AUTOMATED 180 10^3/uL (150-450); RED BLOOD COUNT 5.35 10^6/uL (4.30-6.10); WHITE BLOOD COUNT 7.9 10^3/uL (4.0-10.0)
[2021-07-03 15:01] LABS: ERYTHROCYTE SEDIMENTATION RATE 4 mm/hr (0-20)
== END ==
LOC: M PLALAB 09:50
PROVIDERS: ATTEND Nurse Practitioner Family
DX: Z96.651 Presence of right artificial knee joint (principal)

== ENCOUNTER → 2022-01-21 | Outpatient (REF) | payer OTHER | LOC: M SFHCLERA 11:02 | PROVIDERS: ATTEND Family Medicine | DX: R05.9 Cough, unspecified (principal) ==

== ENCOUNTER → 2022-07-01 | Outpatient (CLI) | payer BC ==
[~2022-07-01] MED LIST changes: +ALBU2.5V10 INH; -ALBU83IN INH
[2022-07-01 14:07] LABS: BASO # 0.1 10^3/uL (0.0-0.2); BASO % 0.7 % (0.0-1.0); EOS # 0.3 10^3/uL (0.0-0.5); EOS % 4.3 % (0.0-3.0); HEMATOCRIT 51.4 % (42.0-52.0); HEMOGLOBIN 16.4 g/dl (13.5-17.5); LYMPH # 1.8 10^3/uL (1.5-5.0); LYMPH % 24.8 % (24.0-44.0); MEAN CORPUSCULAR HEMOGLOBIN 30.4 pg (27.0-33.0); MEAN CORPUSCULAR HGB CONC 31.9 g/dl (32.0-36.5); MEAN CORPUSCULAR VOLUME 95.4 fl (80.0-96.0); MONO # 0.6 10^3/uL (0.0-0.8); MONO % 8.5 % (2.0-8.0); NEUTROPHILS # 4.5 10^3/uL (1.5-8.5); NEUTROPHILS % 61.2 % (36.0-66.0); PLATELET COUNT, AUTOMATED 178 10^3/uL (150-450); RED BLOOD COUNT 5.39 10^6/uL (4.30-6.10); WHITE BLOOD COUNT 7.4 10^3/uL (4.0-10.0)
[2022-07-01 14:53] LABS: ALBUMIN 3.4 GM/DL (3.2-5.2); ALT/SGPT 29 U/L (12-78); BILIRUBIN,TOTAL 0.3 MG/DL (0.2-1.0); BLOOD UREA NITROGEN 8 MG/DL (7-18); CALCIUM LEVEL 8.8 MG/DL (8.8-10.2); CARBON DIOXIDE LEVEL 29 MEQ/L (21-32); CHLORIDE LEVEL 106 MEQ/L (98-107); CHOLESTEROL LEVEL 140 MG/DL (<200); CHOLESTEROL RISK RATIO 3.888 (<5); CREATININE FOR GFR 0.87 MG/DL (0.70-1.30); GLOMERULAR FILTRATION RATE > 60.0 (>49); GLUCOSE, FASTING 146 MG/DL (70-100); HDL CHOLESTEROL 36 MG/DL (>40); LDL CHOLESTEROL 87 MG/DL (<100); NON-HDL-C 104 MG/DL; POTASSIUM SERUM 4.8 MEQ/L (3.5-5.1); SODIUM LEVEL 137 MEQ/L (136-145); TOTAL PROTEIN 6.3 GM/DL (6.4-8.2); TRIGLYCERIDES LEVEL 86 MG/DL (<150)
[2022-07-01 14:54] LABS: CREATININE, URINE 96.3 MG/DL; MALB URINE SIEMENS 14.9 MG/L; MAU/CREAT RATIO 15.4 MCG/MG (0.0-30.0)
[2022-07-01 15:57] LABS: HEMOGLOBIN A1c 8.2 %
== END ==
LOC: M PLALAB 10:59
PROVIDERS: ATTEND Student in an Organized Health Care Education/Training Program
DX: E11.65 Type 2 diabetes mellitus with hyperglycemia (principal)

== ENCOUNTER → 2022-09-21 | Outpatient (CLI) | payer BC | LOC: M RAD 09:49 | PROVIDERS: ATTEND Student in an Organized Health Care Education/Training Program | DX: Z12.2 Encounter for screening for malignant neoplasm of respiratory organs (principal); Z72.0 Tobacco use ==

== ENCOUNTER → 2023-04-08 | Outpatient (CLI) | payer BC | LOC: M PLAIMG 11:15 | PROVIDERS: ATTEND Student in an Organized Health Care Education/Training Program | DX: R91.1 Solitary pulmonary nodule (principal) ==

== ENCOUNTER 2023-09-29 16:28 | Emergency (ER) | payer BC ==
[~2023-09-29] VITALS: Ht 165.1 cm; Wt 92.4 kg
[2023-09-29] MEDS ORDERED: NAPR375T5 PO (16:41)
[2023-09-29] MEDS ORDERED: LIDOCAINE 5% (LIDODERM) PATCH TD ONE (17:40)
[2023-09-29] MEDS ORDERED: KETOROLAC 30 MG/ML 1ML VIAL IM ONE (17:40)
[2023-09-29] MEDS ORDERED: methocarbamoL 500 MG TAB PO ONE (17:40)
[2023-09-29] MEDS ORDERED: METH-1164 PO (18:39)
[2023-09-29 18:47] VITALS: BP 141/74; TEMP 97.2; O2SAT 95
== END 2023-09-29 18:49 | disposition home or self-care (01) ==
LOC: M ED 16:28
DX: M62.838 Other muscle spasm (principal); M19.012 Primary osteoarthritis, left shoulder; E11.9 Type 2 diabetes mellitus without complications; I25.2 Old myocardial infarction; J44.9 Chronic obstructive pulmonary disease, unspecified; K21.9 Gastro-esophageal reflux disease without esophagitis; F17.200 Nicotine dependence, unspecified, uncomplicated; Z79.899 Other long term (current) drug therapy; Z91.013 Allergy to seafood
CPT/HCPCS: 73030; 80047; 96372; 99283; J1885

== ENCOUNTER → 2024-05-29 | Outpatient (CLI) | payer BC ==
[~2024-05-29] MED LIST changes: +METH-1164 PO; +NAPR375T5 PO
== END ==
LOC: M RAD 13:47
PROVIDERS: ATTEND Nurse Practitioner Family
DX: Z87.891 Personal history of nicotine dependence (principal)

== ENCOUNTER → 2024-06-09 | Outpatient (CLI) | payer BC ==
[~2024-06-09] MED LIST changes: +NAPR-1450 PO; -NAPR375T5 PO
== END ==
LOC: M PLAIMG 11:21
PROVIDERS: ATTEND Physician Assistant
DX: M25.512 Pain in left shoulder (principal)

== ENCOUNTER → 2024-06-20 | Outpatient (CLI) | payer BC | LOC: M SOG 13:58 | PROVIDERS: ATTEND Physician Assistant | DX: M25.511 Pain in right shoulder (principal) ==

== ENCOUNTER → 2024-11-16 | Outpatient (CLI) | payer BC ==
[2024-11-16 11:24] LABS: BASO % 0.6 % (0.0-1.0); EOS # 0.2 10^3/uL (0.0-0.5); EOS % 3.2 % (0.0-3.0); HEMATOCRIT 54.6 % (42.0-52.0); HEMOGLOBIN 18.5 g/dl (13.5-17.5); LYMPH # 1.7 10^3/uL (1.5-5.0); LYMPH % 32.4 % (24.0-44.0); MEAN CORPUSCULAR HEMOGLOBIN 29.5 pg (27.0-33.0); MEAN CORPUSCULAR HGB CONC 33.9 g/dl (32.0-36.5); MEAN CORPUSCULAR VOLUME 86.9 fl (80.0-96.0); MONO # 0.5 10^3/uL (0.0-0.8); MONO % 9.3 % (2.0-8.0); NEUTROPHILS # 2.8 10^3/uL (1.5-8.5); NEUTROPHILS % 53.7 % (36.0-66.0); PLATELET COUNT, AUTOMATED 143 10^3/uL (150-450); RED BLOOD COUNT 6.28 10^6/uL (4.30-6.10); WHITE BLOOD COUNT 5.3 10^3/uL (4.0-10.0)
[2024-11-16 11:54] LABS: CREATININE, URINE 84.7 MG/DL; MAU/CREAT RATIO 53.1 MCG/MG (0.0-30.0)
[2024-11-16 11:55] LABS: ALBUMIN 3.5 G/DL (3.2-5.2); ALKALINE PHOSPHATASE 118 U/L (40-129); ALT/SGPT 24 U/L (7.0-40); AST/SGOT 11 U/L (<34); BILIRUBIN,TOTAL 0.4 MG/DL (0.3-1.2); BLOOD UREA NITROGEN 11 MG/DL (9-23); CALCIUM LEVEL 9.3 MG/DL (8.3-10.6); CARBON DIOXIDE LEVEL 31 MMOL/L (20-31); CHLORIDE LEVEL 99 MMOL/L (98-107); CHOLESTEROL LEVEL 141 MG/DL (<200); CHOLESTEROL RISK RATIO 3.54 (<5); CREATININE FOR GFR 0.68 MG/DL (0.70-1.30); GLOMERULAR FILTRATION RATE > 60.0 (>49); GLUCOSE, FASTING 324 MG/DL (74-106); HDL CHOLESTEROL 39.8 MG/DL (>40); NON-HDL-C 101.2 MG/DL; POTASSIUM SERUM 5.1 MMOL/L (3.5-5.1); SODIUM LEVEL 136 MMOL/L (136-145); TOTAL PROTEIN 6.7 G/DL (5.7-8.2); TRIGLYCERIDES LEVEL 91 MG/DL (<150)
[2024-11-16 11:59] LABS: THYROID STIMULATING HORMONE 1.133 uIU/ML (0.55-4.78)
[2024-11-16 12:00] LABS: HEMOGLOBIN A1c 13.6 % (4.0-6.0)
== END ==
LOC: M RAD 08:20
DX: R05.9 Cough, unspecified (principal)

== ENCOUNTER → 2025-03-05 | Outpatient (REF) | payer BC, OTHER ==
[2025-03-05 18:45] LABS: CALCIUM LEVEL 9.1 MG/DL (8.3-10.6); CARBON DIOXIDE LEVEL 26 MMOL/L (20-31); CHLORIDE LEVEL 106 MMOL/L (98-107); CREATININE FOR GFR 0.87 MG/DL (0.70-1.30); GLOMERULAR FILTRATION RATE > 90.0 (>49); POTASSIUM SERUM 4.2 MMOL/L (3.5-5.1); SODIUM LEVEL 144 MMOL/L (136-145)
[2025-03-05 18:52] LABS: ESTIMATED AVERAGE GLUCOSE 200.0 MG/DL (60-110)
== END ==
LOC: M SFHCLERA 07:17
DX: E11.65 Type 2 diabetes mellitus with hyperglycemia (principal)

== ENCOUNTER → 2025-07-04 | Outpatient (CLI) | payer BC | LOC: M RAD 07:29 | PROVIDERS: ATTEND Internal Medicine Pulmonary Disease | DX: Z87.891 Personal history of nicotine dependence (principal) ==